=== PATIENT | female | born 1985 | race Caucasian/White ===

== ENCOUNTER 2017-10-26 07:05 | Inpatient (IN) | payer BC ==
[2017-10-26] MEDS ORDERED: Acetaminophen 500 MG TAB PO PRN (07:12)
[2017-10-26] MEDS ORDERED: Ondansetron HCl/PF 4 MG/2 ML Vial IVP PRN ×4 (07:12→14:11)
[2017-10-26] MEDS ORDERED: Lactated Ringer's 1,000 ML IV SCH ×2 (07:12→14:11)
[2017-10-26] MEDS ORDERED: Promethazine HCl 25 MG/ML VIAL IM PRN ×3 (07:12→14:11)
[2017-10-26] MEDS ORDERED: Butorphanol Tartrate 1 MG/ML VIAL SLOW IVP PRN (07:12)
[2017-10-26] MEDS ORDERED: Docusate 100 MG CAP PO PRN (07:12)
[2017-10-26] MEDS ORDERED: Bicitra 30 ML UDCUP PO SCH (07:12)
[2017-10-26] MEDS ORDERED: CEFAZOLIN/Water 2 GM/20 ML SYRINGE SLOW IVP SCH (07:12)
[2017-10-26] MEDS ORDERED: Meperidine HCl/PF 25 MG/ML VIAL IM/IV PRN (07:12)
[2017-10-26 08:00] VITALS: BMI 35.7
[2017-10-26 08:07] LABS: Hemoglobin 13.7 g/dL (12.0-16.0); Mean Corpuscular HGB CONC 33.9 g/dL (32.0-36.0); Mean Corpuscular Hemoglobin 31.2 pg (27.0-31.0); Mean Corpuscular Volume 92.1 fL (78.0-98.0); Platelet Count 123 thou/uL (130-400); RBC Distribution Width 12.3 % (11.5-14.5); Red Blood Cell (RBC) Count 4.39 mill/uL (4.20-5.40); White Blood Cell (WBC) Count 9.2 thou/uL (4.8-10.8)
[2017-10-26 08:36] LABS: HBSAg Index 0.23 S/CO (0-0.99); Hep B Surf Ag Non-Reactive S/CO (NonReactive); Syphilis Antibody Nonreactive (Nonreactive); Syphilis Antibody Index 0.02 S/CO (<1.00 Non-Reactive)
[2017-10-26] MEDS ORDERED: Ropivacaine 0.2% 550 ML 750 ML NERVE BLCK SCH (08:45)
[2017-10-26] MEDS ORDERED: Ropivacaine HCl/PF 750 ML in Premix Bag 1 BAG NERVE BLCK SCH (09:00)
--- NOTE | 2017-10-26 09:18 | PDOC.LDHP ---
Labor and Delivery H&P Chief complaint: scheduled section HPI: Pt is a 31yo @ 39 weeks, GDMA1-here for RCS, declines MARTHA. Current gestational age (weeks): 39 Due date: 11/02/17 Grav: 2 Para: 1 OB History Details: prev CS for AOAP @ 9cm Current complications: gestational diabetes (diet controlled) Abnormal US findings: No Current medications: pre- vitamins Previous surgical history: low tranverse CS Allergies/Adverse Reactions: Allergies Allergy/AdvReac Type Severity Reaction Status Date / Time No Known Allergies Allergy Verified 10/26/17 08:04 Social history: none - Physical Exam Vital signs reviewed and normal: yes General: resting Lungs: CTAB Abdomen: gravid Extremeties: trace edema FHT: category 1 - OB Labs Blood type: A RH: positive Antibody Screen: negative HIV: negative RPR: negative HEPSAg: negative 1 hour GCT: positive 3 hour GTT: deferred due to 1hr 203 GBS: negative Urine drug screen: not done Rubella: immune - Assessment L&D Assessment: scheduled repeat section - Plan Plan: admit to L&D, to OR for section, informed consent obtained, anesthesia consult for pain management -: A/P: 31yo @ 39 weeks here for scheduled RCS. A1DM well controlled, declines MARTHA.
[2017-10-26] MEDS ORDERED: Fentanyl 100 MCG/2 ML VIAL ONE (11:07)
[2017-10-26] MEDS ORDERED: Morphine PF 1 MG/ML SYR ONE (11:07)
[2017-10-26] MEDS ORDERED: Oxytocin 10 UNITS/ML VIAL ONE (11:08)
[2017-10-26] MEDS ORDERED: Ondansetron HCl/PF 4 MG/2 ML Vial ONE ×2 (11:08→11:31)
[2017-10-26] MEDS ORDERED: PHENYLEPHRINE-NS 100 MCG/ML 10 ML SYRINGE ONE ×2 (11:08→11:31)
[2017-10-26] MEDS ORDERED: ePHEDrine/0.9% NaCl/PF SYRINGE 50 mg/10 ml ONE ×2 (11:08→11:31)
[2017-10-26] MEDS ORDERED: Lidocaine 1% PF 5 ML VIAL ONE (11:12)
[2017-10-26] MEDS ORDERED: Bupivacaine 0.75% W/DEXTROSE 8.25% 2 ML AMP ONE ×2 (11:12)
[2017-10-26] MEDS ORDERED: Dexamethasone 20 MG/5 ML VIAL ONE (11:31)
[2017-10-26] MEDS ORDERED: Dexamethasone 4 mg/ml Vial ONE (11:41)
[2017-10-26] MEDS ORDERED: Bupivacaine 0.25% HCL 30 ML VIAL ONE (11:56)
--- NOTE | 2017-10-26 12:12 | PDOC.OPDEL ---
OB Operative/Delivery Note Delivery Dr/Surgeon: Bar Assist: Bhavik Sharma Pre-Delivery Diagnosis: scheduled section Procedure/Post Delivery Dx: repeat low transverse CS Weeks gestation: 39 Anesthesia: spinal - Findings A Sex: female Weight: 10 lb 4 oz - 1 min: 9 - 5 min: 9 - Additional Findings/Plan Placenta delivered: manual removal findings: low transverse hysterotomy without extension, normal uterus, normal tubes Estimated blood loss: 700ml QBL pending Post delivery plan: routine recovery
[2017-10-26] MEDS ORDERED: Promethazine HCl 25 MG SUPP PR PRN (12:35)
[2017-10-26] MEDS ORDERED: Naloxone HCl 0.4 mg/ml Vial IVP PRN ×2 (12:35)
[2017-10-26] MEDS ORDERED: Eucerin (Mineral Oil/Petrolatum,White) 30 gm Jar TOP PRN (12:35)
[2017-10-26] MEDS ORDERED: Naloxone HCl 0.4 mg/ml Vial IV PRN (12:35)
[2017-10-26] MEDS ORDERED: Meperidine HCl/PF 25 MG/ML VIAL SLOW IVP PRN (12:35)
[2017-10-26] MEDS ORDERED: diphenhydrAMINE 50 MG/ML VIAL IVP PRN (12:35)
[2017-10-26] MEDS ORDERED: Ketorolac Tromethamine 30 MG/ML VIAL IVP SCH (12:45)
[2017-10-26] MEDS ORDERED: Communication Order-Pharmacy FS SCH (12:45)
[2017-10-26] MEDS ORDERED: Adacel (T-DAP) 0.5 ML VIAL IM ONE (14:11)
[2017-10-26] MEDS ORDERED: Bisacodyl 10 MG SUPP PR PRN (14:11)
[2017-10-26] MEDS ORDERED: diphenhydrAMINE 25 MG CAP PO PRN (14:11)
[2017-10-26] MEDS ORDERED: Lanolin Ointment 7 GM TUBE TOP PRN (14:11)
[2017-10-26] MEDS ORDERED: NS / Oxytocin 40 units/1000ml 1,000 ML IV SCH (14:11)
--- NOTE | 2017-10-26 14:48 | OP ---
DATE OF PROCEDURE: 10/26/2017 PRIMARY OB: Malachi Dinero D.O. The patient, Becka Bethea, is a 31-year-old female who is present for a scheduled repeat . I served as public health training assistant to Dr. Malachi Dinero, the primary surgeon. For complete details, please refer t o Dr. Dinero's operative note.
--- NOTE | 2017-10-26 15:48 | OP ---
DATE OF PROCEDURE: 10/26/2017 PREOPERATIVE DIAGNOSES: 1. A 31-year-old G2, P1-0-0-1 at 39 weeks. 2. Previous section, declines trial of labor. 3. Gestational diabetes, diet controlled. POSTOPERATIVE DIAGNOSES: 1. A 31-year-old G2, P1-0-0-1 at 39 weeks. 2. Previous section, declines trial of labor. 3. Gestational diabetes, diet controlled. 4. Status post section. PROCEDURES PERFORMED: Repeat low transverse section. SURGEON: Malachi Dinero D.O. NEUROLOGY PHYSICIAN ASSISTANT: Kiet Sharma M.D. and her Ward Maid, Dr. De La Rosa. ANESTHESIA: Spinal, Dr. Atkins. COMPLICATIONS: None. ESTIMATED BLOOD LOSS: 700 mL. QBL: 585 mL. FINDINGS: 1. Minimal adhesive disease. 2. Low transverse hysterotomy without extension. 3. Vigorous female infant, weight 10 pounds 4 ounces to Nursery. Apgars 8 and 9. Placenta delivered intact. 4. Surgical site hemostatic. PROCEDURE IN DETAIL: Spinal anesthesia was obtained, the patient was placed in dorsal supine position with a left lateral tilt. SCDs were placed to bilateral lower extremities. The abdomen was prepped and draped in normal fashion for section. The surgeons were scrubbed in. Anesthesia was tested and found to be adequate. A Pfannenstiel skin incision was made with the scalpel. This incision was carried down through subcutaneous tissue to the fascia. Fascia was reached, it was incised in the midline and extended superolaterally with curved Short scissors. Leonides clamps were placed at the superior border of the fascia, which was sharply and bluntly dissected off the rectus muscles in both caudad and cephalad direction allowing adequate space for delivery of infant. The rectus muscles were bluntly entered and stretched laterally. Some omental banding across the uterus was incised with the Bovie cauterization with hemostasis noted. A bladder flap was created with Metzenbaum scissors and bladder dissected away from planned hysterotomy site. Low transverse hysterotomy was made with the scalpel. The hysterotomy was bluntly entered, created, and stretched using a Vásquez maneuver. Clear fluid was noted after amniotomy was performed. The infant was then delivered through the hysterotomy without difficulty. The cord was doubly clamped and cut after delayed cord clamping and handed off to special care nurses in attendance. Cord blood was collected. The uterus was exteriorized, massaged to firm, and cleared of clot and debris and returned to the abdominal cavity. Hysterotomy was inspected with no extension noted. This area was closed with Monocryl suture in running, locked fashion. After the hysterotomy was closed it was noted to be hemostatic. The hysterotomy and pericolic gutters were copiously irrigated and suctioned dry. The ON-Q pump was introduced through the subcutaneous tissue and fascia and directed between the rectus and fascia. After this was completed , the fascia and rectus muscles were inspected with no areas of bleeding noted, PDS suture was used to reapproximate and close the fascial layer. The subcutaneous tissue was then irrigated and dried. No areas of bleeding were noted. Subcutaneous tissue was reapproximated with plain gut suture. The skin was closed with 4-0 Monocryl and dressed with Dermabond dressing. The patient tolerated the procedure with no complications. The counts were correct. CHEPE
[2017-10-26] MEDS: Ketorolac Tromethamine 30 MG/ML VIAL IVP PRN (16:41)
[2017-10-26] MEDS: Ferrous Sulfate 325 MG TAB PO SCH (17:33)
[2017-10-26] MEDS: Docusate Calcium (SURFAK) 240 MG CAP PO SCH (23:25)
[2017-10-27] MEDS ORDERED: Acetaminophen/Codeine 30-300mg Tablet PO PRN (00:45)
[2017-10-27] MEDS: Ketorolac Tromethamine 30 MG/ML VIAL IVP PRN (02:50)
[2017-10-27 05:50] LABS: Hemoglobin 10.5 g/dL (12.0-16.0); Mean Corpuscular HGB CONC 34.1 g/dL (32.0-36.0); Mean Corpuscular Hemoglobin 32.1 pg (27.0-31.0); Mean Corpuscular Volume 94.1 fL (78.0-98.0); Mean Platelet Volume 9.8 fL (7.4-10.4); Platelet Count 113 thou/uL (130-400); RBC Distribution Width 12.3 % (11.5-14.5); Red Blood Cell (RBC) Count 3.28 mill/uL (4.20-5.40); White Blood Cell (WBC) Count 12.4 thou/uL (4.8-10.8)
[2017-10-27] MEDS: Ferrous Sulfate 325 MG TAB PO SCH ×2 (07:19→15:38)
[2017-10-27] MEDS: Prenatal Vitamin 1 TAB PO SCH (08:16)
[2017-10-27] MEDS: Simethicone Chewable 80 MG TAB PO PRN ×2 (08:17→17:22)
[2017-10-27] MEDS: Acetaminophen/Codeine 30-300mg Tablet PO PRN ×4 (08:17→21:30)
[2017-10-27] MEDS: Docusate Calcium (SURFAK) 240 MG CAP PO SCH ×2 (08:17→21:30)
--- NOTE | 2017-10-27 08:27 | PDOC.PP ---
Post Progress Note Post Day #: 1 Subjective: doing well, mild pain, tolerating regular diet PO intake tolerated: yes Flatus: yes Ambulation: yes Vital Signs (12 hours) Temp Pulse Resp BP BP 10/27/17 07:49 98.4 F 78 18 102/58 L 10/27/17 06:00 18 10/27/17 05:20 97.6 F 72 18 104/60 10/27/17 02:00 18 10/27/17 00:00 97.9 F 66 18 102/62 10/26/17 22:00 18 Weight Weight 183 lb - Physical Examination General: NAD Respiratory: non-labored breathing Abdominal: no distention Fundus firm & at: below umb Skin: CS incision dry & intact, no rash Neurological: no gross focal deficits Psychiatric: A&Ox3, normal affect Result Diagrams: 10/27/17 05:15 Additional Labs: Post Labs Blood Type A POSITIVE 10/26/17 07:36 Hep Bs Antigen Non-Reactive S/CO (NonReactive) 10/26/17 07:36 (1) Delivered by section Code(s): O82 - ENCOUNTER FOR DELIVERY WITHOUT INDICATION Status: Acute - Assessment/Plan POD1 sp RCS, doing well, advancing orders today, possible DC tomorrow.
[2017-10-27] MEDS: Ibuprofen 800 MG TAB PO SCH ×2 (13:28→21:30)
[2017-10-28] MEDS: Acetaminophen/Codeine 30-300mg Tablet PO PRN (03:56)
[2017-10-28] MEDS: Simethicone Chewable 80 MG TAB PO PRN ×3 (03:57→22:30)
[2017-10-28] MEDS: Ibuprofen 800 MG TAB PO SCH ×3 (06:09→22:30)
[2017-10-28] MEDS: Docusate Calcium (SURFAK) 240 MG CAP PO SCH ×2 (09:52→22:30)
[2017-10-28] MEDS: Prenatal Vitamin 1 TAB PO SCH (09:52)
[2017-10-28] MEDS: Ferrous Sulfate 325 MG TAB PO SCH ×2 (09:55→18:47)
[2017-10-29] MEDS: Ibuprofen 800 MG TAB PO SCH (06:46)
[2017-10-29 09:08] VITALS: BP 116/71; TEMP 98
[2017-10-29] MEDS: Prenatal Vitamin 1 TAB PO SCH (09:24)
[2017-10-29] MEDS: Ferrous Sulfate 325 MG TAB PO SCH (09:24)
[2017-10-29] MEDS: Docusate Calcium (SURFAK) 240 MG CAP PO SCH (09:24)
--- NOTE | 2017-10-29 15:41 | DIS ---
DATE OF ADMISSION: 10/26/2017 DATE OF DISCHARGE: 10/29/2017 ADMITTING DIAGNOSIS: Repeat section at term. DISCHARGE DIAGNOSIS: Repeat section at term. PROCEDURE: Repeat . CONSULTATIONS: None. HOSPITAL COURSE: The patient is a 31-year-old female, who presented to Labor and Delivery at 39 week s' gestation for a scheduled repeat . For complete details, please refer to the operative n ote. Her postoperative course has been fairly uncomplicated. Postoperative day #2, the patient was having some colicky pains, but by postoperative day #3, the patient reports that she is feeling much better, having good pain control, tolerating p.o., voiding on her own, and having decreased lochia. The patient has expressed interest in discharging this morning. PHYSICAL EXAMINATION: MOST RECENT VITAL SIGNS: Blood pressure is 118/60, temperature 98.2, pulse of 80, respiratory rate o f 18. GENERAL: She appears to be in no acute distress. She is alert and oriented, cooperative and pleasan t to interact with. HEENT: Normocephalic, atraumatic. ABDOMEN: Fundus is firm. Incision is clean, dry, and intact with ON-Q pump in place. EXTREMITIES: Nontender, nonedematous. The patient is being discharged to home with ON-Q pump and Tylenol #3 with [id number] ibuprofen as needed. The patient has instructions to follow up with her primary OB, Dr. Dinero, in 2 weeks. S he also has instructions to seek medical attention sooner if she experiences pain, increasing bleedin g, redness, or incision or drainage from her incision site.
== END 2017-10-29 10:05 | disposition home or self-care (01) | DRG 766 ==
LOC: L&D 07:05 → 3SW 15:15 → EDSTATUS 11-02 14:03
PROVIDERS: ADMIT Obstetrics & Gynecology; ATTEND Obstetrics & Gynecology
PROC: 10D00Z1 Extraction of Products of Conception, Low, Open Approach (ICD-10-PCS; principal; 2017-10-26)
DX: O34.211 Maternal care for low transverse scar from previous cesarean delivery (principal); Z37.0 Single live birth; Z3A.39 39 weeks gestation of pregnancy; O24.420 Gestational diabetes mellitus in childbirth, diet controlled
CPT/HCPCS: 36415; 51702; 85027; 86780; 86850; 86900; 86901; 87340; J1100; J1200; J1885; J2001; J2274; J2310; J2405; J2590; J2795; J3010; J3490; S0020